=== PATIENT | male | born 1965 | race Caucasian/White ===

== ENCOUNTER 2020-01-15 10:59 | Outpatient (CLI) | payer OTHER, SELFPAY ==
--- NOTE | ~2020-01-15 | US_ITS ---
EXAMINATION: US thyroid DATE: 01/15/2020 11:37 INDICATION: Iodine deficiency related diffuse (endemic) goiter. TECHNIQUE: Multiple ultrasound images of the thyroid were obtained. COMPARISON: None. FINDINGS: The right thyroid lobe measures 4.6 x 1.7 x 1.3 cm. The left thyroid lobe measures 3.1 x 1.0 x 1.3 c m. There is a 3 mm hypoechoic nodule in left thyroid lobe, likely not clinically significant. IMPRESSION: 1. Thyroid nodule, likely not clinically significant. No follow-up is needed. Reviewed, dictated and finalized at location E.
== END 2020-01-15 11:00 | disposition home or self-care (01) ==
PROVIDERS: PCP Internal Medicine; Visit Provider Internal Medicine
DX: E01.0 Iodine-deficiency related diffuse (endemic) goiter (principal)
CPT/HCPCS: 76536

== ENCOUNTER 2020-07-26 08:57 | Outpatient (CLI) | payer OTHER, SELFPAY ==
--- NOTE | ~2020-07-26 | MR_ITS ---
EXAMINATION: MR shoulder RT wo con DATE: 07/26/2020 10:35 INDICATION: Right shoulder pain. TECHNIQUE: Magnetic resonance imaging (MRI) of the right shoulder was performed without intravenous c ontrast. Sequences included axial PD-weighted FS FSE, coronal oblique PD-weighted FS FSE and T2-weigh zeus FS FSE, and sagittal oblique T2-weighted FS FSE and T1-weighted FSE. COMPARISON: Right shoulder radiographs 06/15/2020 FINDINGS: Coracoacromial arch: The acromion undersurface is curved in morphology (type II). Subacromial spurring is noted. There is severe acromioclavicular joint osteoarthritis including fairly directed osteophytes. There is moderat e subacromial/subdeltoid bursitis. Rotator cuff: There is severe supraspinatus and infraspinatus tendinopathy. There is a full-thickness tear of supra spinatus tendon measuring 4 mm anterior to posterior by 10 mm proximal to distal. There is an articul ar-sided partial-thickness tear of supraspinatus and infraspinatus tendons measuring 25 mm anterior t o posterior by 30 mm proximal to distal. Teres minor tendon is normal. There is severe subscapularis tendinopathy. There is no asymmetric fatty atrophy of the rotator cuff muscle bellies. Biceps tendon and glenoid labrum: Biceps tendon is in bicipital groove. There is moderate intra-articular biceps tendinopathy. There is a degenerative tear of superior labrum from 11:00 to 12:00 (type I SLAP tear). Fluid: There is a moderate-sized glenohumeral joint effusion. Bones/cartilage: There is partial-thickness cartilage loss of glenoid, worst at the central articular surface. There i s partial-thickness cartilage loss of humeral head. Osteophytes are noted. IMPRESSION: 1. Full-thickness rotator cuff tear. 2. Mild glenohumeral joint chondrosis. 3. Severe acromioclavicular joint osteoarthritis. 4. Moderate intra-articular biceps tendinopathy. 5. Moderate-sized glenohumeral joint effusion and moderate subacromial/subdeltoid bursitis. Reviewed, dictated and finalized at location A. AUDITOR IMPRESSION: 1. Full-thickness rotator cuff tear. 2. Mild glenohumeral joint chondrosis. 3. Severe acromioclavicular joint osteoarthritis. 4. Moderate intra-articular biceps tendinopathy. 5. Moderate-sized glenohumeral joint effusion and moderate subacromial/subdelto id bursitis.
== END 2020-07-26 08:58 | disposition home or self-care (01) ==
PROVIDERS: PCP Internal Medicine; Visit Provider Orthopaedic Surgery
DX: M75.121 Complete rotator cuff tear or rupture of right shoulder, not specified as traumatic (principal); M19.011 Primary osteoarthritis, right shoulder; M75.51 Bursitis of right shoulder; M25.411 Effusion, right shoulder
CPT/HCPCS: 73221

== ENCOUNTER 2020-08-05 02:11 | Outpatient (CLI) | payer OTHER, SELFPAY ==
[2020-08-05 18:46] LABS: SARS-CoV-2 RNA PCR Negative
== END 2020-08-05 02:12 | disposition home or self-care (01) ==
LOC: ANHCOVIDDT 02:11
PROVIDERS: PCP Internal Medicine; Visit Provider Orthopaedic Surgery
DX: Z01.812 Encounter for preprocedural laboratory examination (principal); Z11.59 Encounter for screening for other viral diseases
CPT/HCPCS: 87635; C9803; U0003

== ENCOUNTER 2020-08-05 09:33 | Outpatient (CLI) | payer OTHER, SELFPAY ==
--- NOTE | 2020-08-05 09:35 | ECG_ITS ---
Measurements Intervals [place] Rate: 77 P: 37 ME: 143 QRS: 30 QRSD: 105 T: 23 QT: 363 QTc: 411 Interpretive Statements SINUS RHYTHM BASELINE WANDER- V4-V6 NORMAL ECG Electronically Signed On 08-05-2020 10:40:50 HR SYSTEMS ANALYST by Dmitry Layton D.O.
== END 2020-08-05 09:34 | disposition home or self-care (01) ==
PROVIDERS: PCP Internal Medicine; Visit Provider Orthopaedic Surgery
DX: Z01.810 Encounter for preprocedural cardiovascular examination (principal); Z11.59 Encounter for screening for other viral diseases; I10 Essential (primary) hypertension
CPT/HCPCS: 93005

== ENCOUNTER 2020-08-08 01:11 | Day surgery (SDC) | payer OTHER, SELFPAY ==
[2020-08-02 09:27] VITALS: BMI 33.9
[2020-08-08] VITALS (12 sets, daily range): BP systolic 123–192; BP diastolic 52–97; PULSE 75–94; RESP 15–20; TEMP 36.6–36.7; O2SAT 90–100
--- NOTE | 2020-08-08 08:32 | WPDANESEPPF ---
Anes - Initial Pre Proc Eval Procedure: Operation Date: 08/08/20 10:00 Proposed Procedures p Right Open Rotator Cuff Repair, Acromioplasty, Distal Clavicle Excision - Abiel Flores MD Date/Time: 08/08/20 08:32 Surgeon: Abiel Flores MD Pre Op Diagnosis: right rotator cuff tear, ac arthritis Patient Data Age: 55 Gender: M Height: 1.83 m Weight: 113.4 kg Allergies Allergy/AdvReac Type Severity Reaction Status Date / Time No Known Allergies Allergy Unknown Other Verified 08/02/20 08:30 Home Medications Medication Instructions Recorded Confirmed Type acetaminophen 650 mg 1,300 mg PO Q12H tablet 01/08/20 08/02/20 History tablet,extended release sildenafil 50 mg tablet 50 mg PO DAILY PRN #9 tablet 01/08/20 08/02/20 Rx lisinopril 10 1 tablet PO DAILY #90 tablet 03/24/20 08/02/20 Rx mg-hydrochlorothiazide 12.5 mg tablet exenatide microspheres 2 mg/0.85 2 mg SUB-Q WEEKLY 90 Days #10.2 ml 05/24/20 08/02/20 Rx mL subcutaneous auto-injector insulin lispro protamine-lispro See Rx Instructions SUBCUT DAILY 05/24/20 08/02/20 Rx 100 unit/mL (75-25) subcutaneous 90 Days #75 ml pen pen needle, diabetic 31 gauge x #200 each 05/24/20 07/27/20 Rx 5/16 metformin 1,000 mg tablet 1,000 mg PO BID 90 Days #180 tablet 07/14/20 08/02/20 Rx calcium carbonate-vit D3-min 600 tablet PO DAILY 08/02/20 08/02/20 History [Calcium-Vitamin D] ibuprofen 800 mg PO BID 08/02/20 08/02/20 History Patient hx anesthesia problems: none Family hx anesthesia problems: none PMFSH Past Medical History Medical History Arthritis of right acromioclavicular joint BMI 34.0-34.9,adult Hemoglobin A1c between 7.0% and 9.0% 7.6 last A1c on 05/24/20 Hypertension Subacromial impingement of right shoulder Type 2 diabetes mellitus with hyperglycemia Surgical History Surgical History H/O elbow surgery right, 2014, Dr. Flores H/O shoulder surgery left, may 2011, Dr. 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 Gender identity (if verbalized by the patient): Male Spiritual care concerns: No Anes - Eval Final PreProcedure Day of Procedure 08/08/20 08:32 Patient weight: obese Heart: regular rate and rhythm Lungs: clear to auscultation and normal air movement Airway: Mallampati scale class III Neurological: alert and oriented Last oral intake: >/= 8 hours ASA classification: III Emergent: no Anesthetic plan: proceed Anesthesia type and monitoring: general ETT and standard monitoring Informed Consent: The patient's anesthetic plan and its attendant risks and benefits were discussed with the patient/family/POA. Questions were solicited and answers provided to the satisfaction of the patient/family/POA.
--- NOTE | 2020-08-08 08:33 | WPDANESPNB ---
Anes - Peripheral Nerve Block Date/Time: 08/08/20 08:33 I have discussed with the patient/family/POA the placement of a peripheral nerve block for post-operative pain management, including associated risks, benefits, complications, and side effects. Alternative methods of post-operative analgesia were detailed. Questions were solicited and answers provided to the satisfaction of the patient/family/POA. Time-Out: A pre-procedural Time-Out was completed immediately before starting the procedure and confirmed: Patient Identification, Site, Procedure, Patient Position and the Availability of Requisite Equipment. Clinical Indications: Acute post-operative pain management requested by the operative surgeon. Nerve Block Insertion Note Anes-nerve block: interscalene right Patient position: supine Skin prep: chlorhexidine Needle: 22 gauge, stimulating, insulated echogenic needle. Needle length: 50 mm Technique: ultrasound Injectate: bupivacaine 0.5% with epi 5 mcg/ml (30cc) Observations: tolerated well Complications: none Procedure start time:: 1038 Procedure end time:: 1
[2020-08-08] MEDS: ACETAMINOPHEN 500 MG TABLET 1000 MG PO (09:07)
[2020-08-08 09:26] LABS: Glucose Point of Care 216 (65-105)
[2020-08-08] MEDS: LACTATED RINGERS 1,000 ML 30 ML IV CONT ×2 (09:34→12:48)
[2020-08-08] MEDS: KETOROLAC 15 MG/ML VIAL (*BKC) IV PUSH (09:37)
--- NOTE | 2020-08-08 10:05 | WPDHPUPDATE1 ---
History and Physical Update Update Date/Time: 08/08/20 10:05 History and Physical has been reviewed, including an updated exam of the patient. There are NO changes in the patient's condition. Risks, benefits, and alternatives have been discussed and questions answered. Patient agrees to proceed with procedure.
[2020-08-08] MEDS: ceFAZolin 2 GM/D5W 50 ML 2 GM/50 ML BAG IVPB (10:48)
[2020-08-08] MEDS: BUPIVACAINE/EPINEPHRINE 0.25% 10 ML VIAL INFILTRATE (11:27)
--- NOTE | 2020-08-08 12:25 | P.OP_ITS ---
Procedure Note - Detailed Date of procedure: 08/08/20 Pre-op diagnosis: right rotator cuff tear, ac arthritis Procedure performed: Right shoulder rotator cuff repair with distal clavicle excision Description of procedure: Patient was identified and proper site identified. In the preop holding area the anesthesia team performed a right upper extremity block. He was then taken to the operating room and transferred to the or table taking care to pad the torso and extremities. After general anesthetic induction and intubation, he was put in a semi beach chair position in the usual manner for a right shoulder procedure. His head was secured taking care to neit her rotate nor extend the head and neck. The right upper extremity was prepped and draped free in usual sterile fashion. The subcutaneous tissue in the area of the incision was injected with 10 cc of 0.25% Marcaine and epinephrine solution. An oblique anterior incision was made extending from the AC joint distally in line with the fibers of the deltoid. Subcutaneous tissue was sharply dissected down to the deltoid fascia. The deltoid was dissected off the anterior portion of the acromion in the distal end of the clavicle. A 2 cm split was made at the junction between the anterior and middle thirds of the deltoid. Using the microsagittal saw the last 8 mm of clavicle removed. The saw was also used to perform the acromioplasty and then the undersurface of the acromion was rasped smooth. Adherent bursa was freed up from the rotator cuff which was inspected. There was an erosive type deficiency at the anterior portion of the supraspinatus on the greater tuberosity as well as what looks like evidence of a recent rupture of the tendinous portion of the cuff. The tendon edges were freshened up the tuberosity prepared for repair. He was able to be repaired with the arm at the side. The repair was carried out with multiple 2. Ethibond suture in a double row fashion passed through a bony bridge. [id number] repairs were also carried out with 2. Ethibond suture. The wound was irrigated with sterile NaCl solution. The deltoid was repaired back to the acromion with 2. Ethibond suture passed through bone and the remainder of the deltoid repair carried out with 2. Vicryl. Subcutaneous tissue was reapproximated with 2. Strata fix and then tissue adhesive used for the skin. Sterile dressing was applied. There were no known intraoperative complications, and perioperative antibiotics were administered. Anesthesia: GETA and regional Surgeon: Abiel Flores MD Estimated blood loss (mL): 30 Drains: No Packing: No Pathology: none sent Complications: No immediate complications Condition: stable Disposition: PACU
[2020-08-08 12:57] LABS: Glucose Point of Care 202 (65-105)
--- NOTE | 2020-08-08 13:09 | SUR.PHASEI ---
1255 - dr. vuong aware of accucheck of 202. no orders received
[2020-08-08] MEDS: ONDANSETRON INJ 4 MG/2 ML VIAL IV PUSH (14:28)
== END 2020-08-08 16:40 | disposition home or self-care (01) ==
PROVIDERS: PCP Internal Medicine; Visit Provider Orthopaedic Surgery
PROC: (CPT 23420; principal; 2020-08-08 10:00)
DX: M75.101 Unspecified rotator cuff tear or rupture of right shoulder, not specified as traumatic (principal); M19.011 Primary osteoarthritis, right shoulder; M75.41 Impingement syndrome of right shoulder; G89.18 Other acute postprocedural pain; I10 Essential (primary) hypertension; E11.9 Type 2 diabetes mellitus without complications; Z79.4 Long term (current) use of insulin; Z79.84 Long term (current) use of oral hypoglycemic drugs; E66.9 Obesity, unspecified; Z68.34 Body mass index [BMI] 34.0-34.9, adult
CPT/HCPCS: 23420; 23120; 64415; 87635; 93005; A4565; A9270; C9803; J0330; J0690; J1100; J1885; J2250; J2405; J2704; J3010; J7120; U0003

== ENCOUNTER 2020-11-07 15:30 | Outpatient (RCR) | payer OTHER, SELFPAY ==
[2020-08-10 13:46] VITALS: BP_SYST 40
--- NOTE | 2020-08-10 14:53 | PTOPEVAL ---
PHYSICAL THERAPY EVALUATION AND PLAN OF CARE Thank you for referring Feroz Harrington to [facility] [place] The patient is scheduled to be seen for therapy?2x/week for 3 weeks for phase 1 on therapy. We will continue assess for patient specific care needs. Please review, sign, date and return this plan of care RIVERA. I agree with and certify that the following plan of care is medically necessary. Referring Physician Date Attending Provider: Abiel Flores MD Evaluation Diagnosis post op right rotator cuff repair and acrioplasty Onset 08/08/2020 Subjective Information 2 days post op right rotator Query Text:As Reported By Patient/ cuff repair. Reports that the Family nerve block was almost more difficult to manage than not having it, but otherwise he states his surgery went well. Reports that over all he is doing well. Physician instruction to wear sling when outside of house, but at home to let it hang. Self Report Pain Assessment Right Shoulder(s) Reported Pain Level 3 Pain Description Aching,Heavy,Incisional Pain Frequency Acute,Continuous Greatest Pain Intensity 8 Interventions Used Interventions Used By Clinicians Ice,Manual Therapy Techniques Pain Relief Interventions Used By Ice,Medication Scapular/ Shoulder Range of Motion Right Shoulder Flexion - Passive 40 Shoulder Abduction - Passive 40 Shoulder Lateral Rotation - Passive -15 Elbow/Forearm Range of Motion Right Reason Not Measured WFL/Right Wrist Range of Motion Right Reason Not Measured WFL/Right Finger Range of Motion Right Reason Not Measured WFL/Right Upper Extremity Muscle Strength Testing General Upper Extremity Strength Reason Not Measured Surgery Precautions Posture Posture Evaluation View Lateral Head/C-Spine Posture Forward Head Thoracic Spine Posture Increased Kyphosis Shoulder Posture (L) Forward,(R) Forward,(L) Elevated,(R) Elevated Palpation warm to touch surrounding incision site; incision site well healing, no redness or significant swelling noted Rehab Teaching Teaching Topic Rehab Teaching Topic Components Follow-up Recommendations,Home Program As Pertains To Pain Management,Plan of Care Discussion,Safety,Technique Recipient
[2020-08-31 16:44] VITALS: BP_SYST 110
--- NOTE | 2020-08-31 17:23 | PTOPEVAL ---
PHYSICAL THERAPY PROGRESS REPORT Thank you for referring Feroz Harrington to [facility].? The patient is scheduled to be seen for therapy? 2-3x/week for 4 weeks. Please review, sign, date and return this plan of care RIVERA. I agree with and certify that the following plan of care is medically necessary. Referring Physician Date Attending Provider: Abiel Flores MD Progress Diagnosis post op right rotator cuff repair and acrioplasty Onset 08/08/2020 Subjective Information 3 weeks post op right rotator Query Text:As Reported By Patient/ cuff repair. Reports that he Family is generally stiff and sore. There are some days better than others and sleeping flat continues to be fairly uncomfortable. Self Report Pain Assessment Right Shoulder(s) Reported Pain Level 2 Pain Description Aching Pain Frequency Acute,Continuous Other Pain Description more stiff than pain Pain Score Pain Score 2: Self Report Interventions Used Interventions Used By Clinicians Ice,Manual Therapy Techniques Pain Relief Interventions Used By Ice,Medication Patient Upper Extremity Range of Motion Scapular/ Shoulder Range of Motion Right Shoulder Flexion - Passive 122 Shoulder Abduction - Passive 110 Shoulder Lateral Rotation - Passive 40 Upper Extremity Muscle Strength Testing General Upper Extremity Strength Reason Not Measured Surgery Precautions Palpation Assessment Palpation Palpation incision well healed; mild scar tissue forming underneath incision site PT Clinical Summary Feroz is a 55 yo male presenting to outpatient physical therapy 3 weeks s/p right rotator cuff repair. Feroz is progressing well with A/AROM and tolerating isometric exercises. In another week we will progress to AROM of right shoulder within patient's tolerance. We will continue PT to continue rehabilitate. PT Services Indicated Yes Rehabilitation Potential Excellent Patient/Caregiver's Personal Goals for recover/rehab well Rehabilitation Potential Barriers to Goal Achievements None Support Requirements For Optimal None Rudolph Patient/Caregiver Informed of Benefits/ Yes Risks of Rehabilitation
--- NOTE | 2020-09-07 12:45 | PCPTNOTE ---
Patient called & cancelled scheduled appointment this date due to being out of town.
--- NOTE | 2020-09-09 13:41 | PCPTNOTE ---
Patient did not show up for scheduled appointment this date. No answer when patient was called. Left a voicemail
--- NOTE | 2020-09-26 12:45 | PCPTNOTE ---
Patient did not show up for scheduled appointment this date. Called and spoke with patient. He had the dates wrong in his calender. His next appointment in 09/28/20 at 1330.
--- NOTE | 2020-09-28 14:19 | PTOPEVAL ---
PHYSICAL THERAPY PROGRESS REPORT Thank you for referring Feroz Harrington to [facility].? The patient is scheduled to be seen for therapy? 1x/week for 6 weeks. Please review, sign, date and return this plan of care RIVERA. I agree with and certify that the following plan of care is medically necessary. Referring Physician Date Attending Provider: Abiel Flores MD Progress Diagnosis post op right rotator cuff repair and acrioplasty Onset 08/08/2020 Subjective Information 7 weeks post op right rotator Query Text:As Reported By Patient/ cuff repair. Reports some Family discomfort and achiness in the shoulder, but no sharp pains. He is starting to use two hands for brief overhead work. Reports stiffness in the shoulder that improves with exercise and with heat. Self Report Pain Assessment Right Shoulder(s) Reported Pain Level 2 Pain Description Aching,Soreness Pain Frequency Acute,Continuous Pain Score Pain Score 2: Self Report Interventions Used Interventions Used By Clinicians Exercise,Ice,Manual Therapy Techniques Pain Relief Interventions Used By Exercise,Heat,Medication Patient Upper Extremity Range of Motion Scapular/ Shoulder Range of Motion Right Shoulder Flexion - Active 129 Shoulder Abduction - Active 145 Shoulder Medial Rotation - Active L4 Query Text:Reach Behind the Back Shoulder Lateral Rotation - Active 53 Upper Extremity Muscle Strength Testing Scapular/Shoulder Right Shoulder Flexion Strength 3+ Fair + Shoulder Abduction Strength 3+ Fair + Shoulder Medial Rotation Strength 4 Good Shoulder Lateral Rotation Strength 3+ Fair + PT Clinical Summary Feroz is a 55 yo male presenting to outpatient physical therapy 7 weeks s/p right rotator cuff repair. Feroz continues to demonstrate functional limitation to right shoulder ROM and strength. We will continue 1x/week for 6 weeks for strengthening and HEP progression. PT Services Indicated Yes Rehabilitation Potential Excellent Patient/Caregiver's Personal Goals for recover/rehab well Rehabilitation Potential Barriers to Goal Achievements None Support Requirements For Optimal None Hestand Pa
--- NOTE | 2020-11-07 16:23 | PTOPEVAL ---
PHYSICAL THERAPY RE-EVALUATION 11-07-20 Refer to the clinical summary below for his status compared to the last reevaluation. He has a follow up appointment with you next week. If PT is to continue, give him a new script to continue PT. Thank you for referring Feroz Harrington to [facility].? Please review, sign, date and return this plan of care RIVERA. I agree with and certify that the following plan of care is medically necessary. 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; normal job duties lifting required 75#- floor to waist height; usually have 2 staff for heavier lifting; Pain Assessment Timing of Pain Assessment Timing of Pain Assessment Assessment Pain Scale Pain Scale Used Numeric (1 - 10) Self Report Pain Assessment Right Shoulder(s) Reported Pain Level 0 Pain Frequency Chronic Lowest Pain Intensity 0 Greatest Pain Intensity 3 Pain Aggravating Factors Exercise/Activity Other Pain Aggravating Factors lie on R side;reach out or up; using arm Pain Behaviors Grimacing,Guarding Pain Score Pain Score 0: Self Report Additional Pain Score Comments with sleeping- problems sleeping in bed, pain awaken 6x/night; in chair, sleep better, sleep 5 hr/time Interventions Used Interventions Used By Clinicians Exercise Pain Relief Interventions Used By Heat,Ice,Inactivity/Rest, Patient Medication Other Alleviating Interventions taking tylenol arthritis 3x/ day; Upper Extremity Range of Motion Scapular/ Shoulder Range of Motion Right Shoulder Flexion - Active 135 Shoulder Abduction - Active 120 Shoulder Medial Rotation - Active palm to R SIJ Query Text:Reach Behind the Back Shoulder Lateral Rotation - Active 60 Shoulder Lateral Rotation - Active palm to back of head Query Text:Reach Behind the Head Scapular/Shoulder Range of Motion L IR- palm to above waist; Comments R shoulder ER 60' with shoulder abduction 45'; Upper Extremity Muscle Strength Testing General Upper Extremity Strength Gross Upper Extremity Strength Comments -standing:R shoulder 2# hand wt: shoulder flexion x 11 reps
--- NOTE | 2020-11-21 08:22 | PCPTNOTE ---
PHYSICAL THERAPY DISCHARGE 11-21-20 Attending Provider: Abiel Flores MD Patient:Feroz Harrington Date of :1965 Alvarez has not returned to PT with additional orders since the reevaluation on 11/07/2020, therefore he will be discharged at this time. Refer to the reevaluation report for his status at the last session. Thank you for referring Mr. Harrington to [facility]. Please review, sign, date and return this discharge summary RIVERA. I have been updated about the patient's current status and I agree with discharge from the above service at this time. Referring Physician Date
== END 2020-11-08 23:59 | disposition home or self-care (01) ==
LOC: ANHPT 15:30
PROVIDERS: PCP Internal Medicine; Visit Provider Orthopaedic Surgery
DX: M75.121 Complete rotator cuff tear or rupture of right shoulder, not specified as traumatic (principal)
CPT/HCPCS: 97014; 97110; 97140; 97161; G0283

== ENCOUNTER 2022-11-05 12:08 | Outpatient (CLI) | payer BC, SELFPAY ==
[2022-11-05 13:01] LABS: Influenza A QL RT-PCR Negative (Negative); Influenza B QL RT-PCR Negative (Negative); RSV RNA, RT-PCR Negative (Negative); SARS-CoV-2 RNA PCR Negative
== END 2022-11-05 12:09 | disposition home or self-care (01) ==
LOC: ANHLAB 12:09
PROVIDERS: PCP Internal Medicine; Visit Provider Internal Medicine
DX: R50.9 Fever, unspecified (principal); Z20.822 Contact with and (suspected) exposure to COVID-19
CPT/HCPCS: 87637

== ENCOUNTER 2024-07-15 13:26 | Outpatient (CLI) | payer BC, SELFPAY ==
--- NOTE | 2024-07-15 14:30 | NEURO_ITS ---
Impression: # Complains of increasing numbness of right hand. Diabetic about 8 years. # Severe right Carpal Tunnel Syndrome. 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 # Abnormal needle/EMG exam. Nerve Conduction Studies Anti Sensory Summary Table Stim Site NR Peak (ms) P-T Amp (?V) Site1 Site2 Delta-P (ms) Dist (cm) Ion (m/s) Right Median Anti Sensory (2-3nd Digit) Wrist 10.1 31.8 Wrist 2-3nd Digit 10.1 14.0 14 Wrist 7.6 35.6 Wrist 2-3nd Digit 10.1 14.0 14 Right Radial Anti Sensory (Base 1st Digit) Wrist 2.8 4.2 Wrist Base 1st Digit 2.8 0.0 Right Ulnar Anti Sensory (5th Digit) Wrist 3.9 55.8 Wrist 5th Digit 3.9 14.0 36 Motor Summary Table Stim Site NR Onset (ms) O-P Amp (mV) Site1 Site2 Delta-0 (ms) Dist (cm) Ion (m/s) Right Median Motor (Abd Poll Brev) Wrist 9.1 1.3 Elbow Wrist 5.5 33.0 60 Elbow 14.6 1.8 Right Ulnar Motor (Abd Dig Minimi) Wrist 2.8 6.3 A Elbow Wrist 7.0 34.0 49 A Elbow 9.8 5.1 B Elbow Wrist 4.1 23.0 56 B Elbow 6.9 5.9 F Wave Studies NR F-Lat (ms) L-R F-Lat (ms) Right Median (Mrkrs) (Abd Poll Brev) 31.09 Right Ulnar (Mrkrs) (Abd Dig Min) 31.21 EMG Side Muscle Nerve Root Ins Act Fibs Amp Dur Recrt Comment Right 1stDorInt Ulnar C8-T1 Nml Nml Nml >12ms +1 Right Ext Indicis Radial (Post Int) C7-8 Nml Nml Nml Nml Nml Right Ext Digitorum Radial (Post Int) C7-8 Nml Nml Nml Nml Nml Right BrachioRad Radial C5-6 Nml Nml Nml Nml Nml Right PronatorTeres Median C6-7 Nml Nml Nml Nml Nml Right Abd Poll Brev Median C8-T1 Nml Nml Nml >12ms +1 Right ABD Dig Min Ulnar C8-T1 Nml Nml Nml >12ms +1 MTDD
== END 2024-07-15 13:27 | disposition home or self-care (01) ==
LOC: ANHNEURO 13:27
PROVIDERS: PCP Internal Medicine; Visit Provider Nurse Practitioner
DX: G56.01 Carpal tunnel syndrome, right upper limb (principal); G56.21 Lesion of ulnar nerve, right upper limb; E11.9 Type 2 diabetes mellitus without complications
CPT/HCPCS: 95886; 95909

== ENCOUNTER 2025-04-02 13:58 | Emergency (ER) | payer BC, SELFPAY ==
--- NOTE | ~2025-04-02 | XR_ITS ---
XR hip RT min 2V 04/02/2025 14:38 Indication: Right hip pain Procedure: 2 views right hip Comparison: No prior studies for comparison. Findings: Mild osteoarthritis of the right hip. No fracture, subluxation or dislocation. No soft tiss ue abnormality. No foreign bodies. Impression: 1: Mild osteoarthritis of the right hip. Reviewed, dictated and finalized at location A. Impression: 1: Mild osteoarthritis of the right hip.
--- NOTE | 2025-04-02 14:08 | ED_ITS ---
HPI - General Adult General Chief complaint: Extremity Injury, Lower Stated complaint: fall two weeks ago Time Seen by Provider: 04/02/25 14:15 Source: patient, RN notes reviewed and old records reviewed Mode of arrival: ambulatory Limitations: no limitations History of Present Illness HPI narrative: 59-year-old male presents to the [facility] with complaints of hip pain. States that he slipped and fell down 6 steps 2 weeks ago States that the bruises gotten better but still having lateral right hip pain. Has full range of motion. Did not hit head. No loss of consciousness. Onset (ago): week(s) (2) Treatments prior to arrival: NSAID Related Data Home Medications ?Medication ?Instructions ?Recorded ?Confirmed ?Last Taken ?Type cholecalciferol (vitamin D3) 25 25 mcg PO DAILY 01/24/22 01/28/25 Unknown History mcg (1,000 unit) capsule kubxlxtgocpq-lxh-hilzz acid-vit 1 tablet PO DAILY 11/20/24 01/28/25 Unknown History K-lycop 400 mcg-20 mcg-370 mcg tablet (Men's 50 Plus Daily Formula) Allergies Allergy/AdvReac Type Severity Reaction Status Date / Time No Known Allergies Allergy Unknown Other Verified 04/02/25 14:18 Review of Systems Review of Systems: All systems reviewed & are unremarkable except as noted in HPI and below Constitutional: Constitutional: Reports no additional constitutional co mplaints Musculoskeletal: Musculoskeletal: Reports as per HPI, Reports arthralgias and Denies joint swelling Integumentary/Breasts: Skin/Breast: Reports system reviewed and no additional complaints, except as docu PMFSH Past Medical History Medical History Prepatellar bursitis, right knee Thyroid nodule Peripheral neuropathy Obesity Arthritis of right acromioclavicular joint Subacromial impingement of right shoulder Hypertension BMI 34.0-34.9,adult Erectile dysfunction Diastasis recti Hyperlipidemia with target LDL less than 100 Type 2 diabetes mellitus with hyperglycemia Surgical History Surgical History Right rotator cuff tear Rotator cuff repair with DCE July 2020 H/O elbow surgery right, 2014, Dr. Flores H/O shoulder surgery left, may 2011, Dr. 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 There is no relevant family history pertinent to the patient complaint. Exam Const: General: cooperative, healthy appearing, comfortable, no acute distress, well developed, alert and well nourished Nutritional Appearance: well nourished Orientation/consciousness: patient oriented x3 Limitations: no limitations HENMT: Head: normal to inspection Eyes: General: appearance normal, both eyes and all related structures Alignment and Position: alignment normal Neck: Neck: normal visual inspection, full ROM, no lymphadenopathy and no meningeal signs Chest: Chest palpation & inspection: normal inspection of the chest Resp: Effort & Inspection: normal respiratory effort and able to speak in complete sentences Cardio: Rate: regular rate Back/Spine/Pelvis: Back: No back tenderness Neuro: General: patient oriented x3, gait normal, moves all extremities and no meningeal signs Cognition (Neuro): normal cognition Speech: normal speech Gait exam (Neuro): Normal gait present Extrem: General: normal to inspection, full ROM, capillary refill normal and normal gait Right lower extremity: hip/thigh Details: tenderness, normal ROM and ecchymosis (Hip to almost lateral knee, green, yellow in color healing); no swelling Psych: Appearance: grossly normal and well kempt Mental Status: mental status grossly normal Speech and movement: Normal speech and movement present and Clear speech present Affect: normal affect Attitude: cooperative Course Course Level of Care: Express Care Visit Vital Signs Vital signs: Vital Signs Temperature 98.0 F 04/02/25 14:15 Pulse Rate 58 L 04/02/25 14:15 Respiratory Rate 18 04/02/25 14:15 Blood Pressure 153/63 H 08/08/25 14:15 Pulse Oximetry 99 04/02/25 14:15 Oxygen Delivery Room Air 04/02/25 14:15 Temperature 98.0 F 04/02/25 14:15 Pulse Rate 58 L 04/02/25 14:15 Respiratory Rate 18 04/02/25 14:15 Blood Pressure 153/63 H 04/02/25 14:15 Pulse Oximetry 99 04/02/25 14:15 Oxygen Delivery Room Air 04/02/25 14:15 Reviewed Medical Decision Making MDM Narrative Medical decision making narrative: Patient sitting comfortably in exam room. Nontoxic, vitals stable. Patient in no acute distress Patient fell 2 weeks ago down 6 stairs, landing on the right hip. Still having some discomfort, bruising, healed X-ray negative Patient appropriate for outpatient treatment with close follow-up Discharge instructions reviewed with patient, as well as provided in writing per nursing staff. The instructions also include specific and strict return/GO TO THE ER as well as f/u information. All questions have been answered, and the patient deny any further questions with discharge and discharge plan. Some parts of this dictation were generated by voice recognition software and may contain typographical and/or grammatical inaccuracies. Differential Diagnosis Differential Diagnosis: Fracture, contusion, hematoma, Medical Records Medical records reviewed: Yes I reviewed the external patient's medical records. Vital Signs Vital Signs: Vital Signs Temperature 98.0 F 04/02/25 14:15 Pulse Rate 58 L 04/02/25 14:15 Respiratory Rate 18 04/02/25 14:15 Blood Pressure 153/63 H 04/02/25 14:15 Pulse Oximetry 99 04/02/25 14:15 Oxygen Delivery Room Air 04/02/25 14:15 Temperature 98.0 F 04/02/25 14:15 Pulse Rate 58 L 04/02/25 14:15 Respiratory Rate 18 04/02/25 14:15 Blood Pressure 153/63 H 04/02/25 14:15 Pulse Oximetry 99 04/02/25 14:15 Oxygen Delivery Room Air 04/02/25 14:15 Reviewed Lab Data Lab results reviewed: Yes I reviewed the patient's lab results. Labs: Reviewed Imaging Data Radiologist's impression: XR hip RT min 2V 04/02/2025 14:38 Indication: Right hip pain Procedure: 2 views right hip Comparison: No prior studies for comparison. Findings: Mild osteoarthritis of the right hip. No fracture, subluxation or dislocation. No soft tissue abnormality. No foreign bodies. Impression: 1: Mild osteoarthritis of the right hip. Critical Care Time Critical Care Time Critical Care Time: No Discharge Plan Discharge Clinical Impression: Contusion of hip, right Qualifiers: Encounter type: initial encounter Qualified Code(s): S70.01XA - Contusion of right hip, initial encounter Patient Disposition: Home Condition: Stable Instructions: Antibiotic Form, Hip Contusion (ED) Additional Instructions: Your Xray did not show a fracture. Ice should be applied to help reduce swelling. It can be used for 20 to 30 sabra rudi, every 2-3 hours while awake. Do not apply ice directly to your skin. You can alternate ibuprofen 600mg and Tylenol 650mg every 4 hours as needed for pain Please schedule a follow-up visit with your personal physician for further evaluation and treatment within 2 weeks especially if symptoms persist. Today your blood pressure is 153/63. For new or worsening symptoms go directly to the emergency room Patient Language: Burkinan Prescriptions: No Action cholecalciferol (vitamin D3) 25 mcg (1,000 unit) capsule 25 mcg PO DAILY losartan 50 mg tablet 50 mg PO DAILY Qty: 90 3RF insulin lispro protamin-lispro [Humalog Mix 75-25 KwikPen] 100 unit/mL (75-25) insulin pen 44 unit subcut BID 90 Days Qty: 79.2 2RF (DME) pen needle, diabetic [BD Ultra-Fine Short Pen Needle] 31 gauge x 5/16 needle See Rx Instructions .ROUTE .COMPLEX Qty: 180 3RF Dose Instruction: USE WITH INSULIN (HUMALOG 75/25) INJECTIONS TWICE A DAY Rx Instructions: USE WITH INSULIN (HUMALOG 75/25) INJECTIONS TWICE A DAY Jardiance 25 mg tablet 25 mg PO DAILY Qty: 90 4RF Mounjaro 5 mg/0.5 mL pen injector 5 mg subcut WEEKLY Qty: 6 3RF Men's 50 Plus Daily Formula 400-20-370 mcg tablet 1 tablet PO DAILY metformin 1,000 mg tablet 1,000 mg PO BID Qty: 180 4RF Follow-up/Referrals: Michael Shields APRN [Primary Care Provider] - [facility] Time of Disposition: 14:58
[2025-04-02 14:15] VITALS: BP 153/63; PULSE 58; RESP 18; TEMP 36.7; O2SAT 99
== END 2025-04-02 15:05 | disposition home or self-care (01) ==
PROVIDERS: Emergency Provider Nurse Practitioner; PCP Nurse Practitioner
DX: S70.01XA Contusion of right hip, initial encounter (principal); W10.9XXA Fall (on) (from) unspecified stairs and steps, initial encounter; I10 Essential (primary) hypertension; E11.42 Type 2 diabetes mellitus with diabetic polyneuropathy; Z79.4 Long term (current) use of insulin; Z79.84 Long term (current) use of oral hypoglycemic drugs; Z79.85 Long-term (current) use of injectable non-insulin antidiabetic drugs; E78.5 Hyperlipidemia, unspecified; M19.011 Primary osteoarthritis, right shoulder; E66.9 Obesity, unspecified; Z68.31 Body mass index [BMI] 31.0-31.9, adult
CPT/HCPCS: 73502; 99213; G0463